=== PATIENT | male | born 1965 | race Caucasian/White ===

== ENCOUNTER 2024-10-20 13:04 | Emergency (ER) | payer BC ==
[2024-10-20] MEDS: Magnesium Sulfat/D5W 1GM/100ML 1 GM in Premix Bag 1 BAG IV ONE ×2 (13:04→13:16)
[2024-10-20] MEDS: Amiodarone 150 MG/3 ML SDV IV ONE (13:04)
[2024-10-20] MEDS: Atropine 0.1 MG/ML 10 ML Syringe IVPUSH ONE (13:06)
[2024-10-20] MEDS: Calcium Chloride 10% 1 GM/10 ML Syringe IVPUSH ONE (13:06)
[2024-10-20] MEDS: 50% Dextrose in Water 50 ML Syringe IVPUSH ONE (13:06)
[2024-10-20] MEDS: EPINEPHrine in 0.9 %/Sod Chlor 250 ML IV SCH (13:08)
[2024-10-20] MEDS: DOPamine/Dextrose 5%-Water 400 MG/250 ML BAG IV SCH (13:11)
[2024-10-20] MEDS ORDERED: Sodium Chloride 0.9% 2.5 ML Syringe FLUSH PRN (13:14)
[2024-10-20] MEDS ORDERED: Sodium Chloride 0.9% 10 ML Syringe FLUSH PRN (13:14)
[2024-10-20] MEDS: Lactated Ringers 1,000 ML IV STA (13:18)
[2024-10-20] MEDS: Norepinephrine Bit/D5W Premix 250 ML IV SCH (13:24)
[2024-10-20 13:26] LABS: BASOPHILS ABSOLUTE AUTO 0.07 K/uL (0.00-0.20); BASOPHILS PERCENT AUTO 1.0 % (0.0-1.0); EOSINOPHILS ABSOLUTE AUTO 0.01 K/uL (0.00-0.45); EOSINOPHILS PERCENT AUTO 0.1 % (0.0-6.0); IMMATURE GRAN ABSOLUTE AUTO 0.56 K/uL (0.00-0.05); IMMATURE GRAN PERCENT AUTO 7.8 % (0.0-0.4); LYMPHOCYTES ABSOLUTE AUTO 2.43 K/uL (1.00-4.80); LYMPHOCYTES PERCENT AUTO 33.8 % (24.0-44.0); MEAN PLATELET VOLUME 10.3 fL (9.4-12.4); MONOCYTES ABSOLUTE AUTO 0.21 K/uL (0.00-0.80); MONOCYTES PERCENT AUTO 2.9 % (0.0-8.0); NEUTROPHILS ABSOLUTE AUTO 3.92 K/uL (1.80-7.70); NEUTROPHILS PERCENT AUTO 54.4 % (41.0-71.0); NRBC ABSOLUTE 0.12 K/uL (0.00-0.02); NRBC PERCENT 1.7 /100WBC (0.0-0.2); PLATELET COUNT,PLT 101 K/uL (150-400); RED BLOOD CELL COUNT 4.46 M/uL (4.52-5.90); WHITE BLOOD CELL COUNT,WBC 7.20 K/uL (3.9-11.3)
[2024-10-20 13:40] LABS: INR 2.69 (0.86-1.11); PTT,PARTIAL THROMBOPLSTIN TIME 44.9 SEC (23.9-30.7)
[2024-10-20 13:43] LABS: APPEARANCE,URINE SLT CLOUDY; GLUCOSE,URINE NEGATIVE (NEGATIVE); OCCULT BLOOD,URINE TRACE-INTACT (NEGATIVE)
[2024-10-20] MEDS: Lactated Ringers 1,000 ML IV SCH (13:51)
[2024-10-20] MEDS: fentaNYL 50 MCG/ML SDV IVPUSH ONE ×2 (13:52→14:04)
[2024-10-20 13:54] LABS: A/G RATIO 0.4 (0.9-1.6); ALANINE AMINOTRANSFERASE,ALT 787 IU/L (14-63); BILIRUBIN TOTAL 0.9 mg/dL (0.2-1.0); BLOOD UREA NITROGEN,BUN 56 mg/dL (7.0-18.0); CARBON DIOXIDE,CO2 14.1 mmol/L (21.0-32.0); CHLORIDE,CL 103 mmol/L (98-107); CREATININE 4.0 mg/dL (0.8-1.3); GLUCOSE RANDOM 323 mg/dL (74-106); POTASSIUM,K 5.3 mmol/L (3.5-5.1); PROTEIN TOTAL,TP 5.1 g/dL (6.4-8.2); SODIUM,NA 147 mmol/L (136-148)
[2024-10-20 14:01] LABS: BASE EXCESS ARTERIAL -25.8 (-2.0-3.0); BICARBONATE,ARTERIAL 6 mEq/L (21-28); PCO2 ARTERIAL 31 mmHG (35-45); PO2 ARTERIAL 217 mmHG (83-108)
[2024-10-20 14:03] LABS: ESTIMATED GFR 16 mL/min (>60)
[2024-10-20 14:20] LABS: EPITHELIAL CELLS,URINE RARE (NONE-FEW)
[2024-10-20 14:28] LABS: ASPARTATE AMNIOTRANSFERASE,AST 3609 IU/L (15-37)
[2024-10-20] MEDS: fentaNYL/Normal Saline 2,500 MCG in Premix Bag 1 BAG IV SCH (14:32)
[2024-10-20] MEDS ORDERED: Amiodarone 150 MG/100 ML 150 MG in Premix Bag 1 BAG IV ONE (18:19)
[2024-10-21] MEDS: Magnesium Sulfat/D5W 1GM/100ML 100 ML ONE ×2 (09:42→13:17)
[2024-10-21] MEDS: fentaNYL/Normal Saline 250 ML ONE (09:42)
[2024-10-21] MEDS: fentaNYL 50 MCG/ML SDV ONE ×2 (09:43)
[2024-10-21] MEDS: EPINEPHrine in 0.9 %/Sod Chlor 250 ML ONE (11:20)
[2024-10-21] MEDS: DOPamine/Dextrose 5%-Water 400 MG/250 ML BAG ONE (13:21)
[2024-10-21] MEDS: Norepinephrine Bit/D5W Premix 250 ML ONE (13:21)
== END 2024-10-20 14:43 ==
LOC: MW.ED 13:04
DX: I46.9 Cardiac arrest, cause unspecified (principal); I10 Essential (primary) hypertension; Z79.01 Long term (current) use of anticoagulants; Z79.899 Other long term (current) drug therapy
CPT/HCPCS: 36415; 36600; 71045; 80053; 81001; 82803; 83735; 85025; 85610; 85730; 92950; 93005; 96365; 96367; 96368; 96375; 96376; 99285; J0168; J0282; J0461; J1265; J3010; J3475; J3490; J7120